=== PATIENT | female | born 1995 | race Caucasian/White ===

== ENCOUNTER 2016-06-11 15:44 | Inpatient (IN) | payer OTHER ==
[~2016-06-11] VITALS: Ht 157.5 cm; Wt 51.2 kg
[2016-06-11] MEDS ORDERED: ONDANSETRON INJ 2 MG/ML 2 ML VIAL IV STA (16:02)
[2016-06-11] MEDS ORDERED: SODIUM CHLORIDE 0.9% 1000ML 1,000 ML IV STA ×2 (16:02)
[2016-06-11] MEDS ORDERED: PROMETHAZINE HCL INJ 6.25 MG in SODIUM CHLORIDE 0.9% 50ML 50 ML IV STA (16:02)
--- NOTE | 2016-06-11 16:19 | EMERGENCY ROOM VISIT NOTE ---
History Report prepared by Gi: Hazel Esquivel Under the Supervision of: Dr. Shai Potter M.D. First contact with patient: 15:56 Chief Complaint: DIZZY Stated Complaint: DIZZY, WEAK, RAPID HEARTRATE, TROUBLE BREATHING Nursing Triage Summary: Pt presents stating she is taking Amox and Clarithromycin since June 05 for h.pylori. I quit taking the Amox yesterday because I thought that was causing the rapid heart rate. They also gave me Prilosec, but I haven't taken it today. For a couple days my heart has been beating rapidly, I was sob and about 3am I got dizzy." History of Present Illness The patient is a 20 year old female who presents to the Emergency Room with complaints of intermittent dizziness starting about 3-4 days ago. She describes it to be a room-spinning dizziness. She has worsening dizziness with changes in position. The patient was recently diagnosed with H Pylori. She was placed on Amoxicillin, Clarithromycin, and Prilosec on June 05. A few days ago, she started having heart palpitations, shortness of breath, and dizziness. She stopped taking Amoxicillin as recommended by her PCP due to concerns about a medication reaction. She continues to have the dizziness, heart palpitations, and shortness of breath. She also started having chest pain last night. She also reports diffuse abdominal pain. 2 days ago, she had vomiting and diarrhea. She describes the diarrhea to be loose and watery. She had some diarrhea this morning but did not have any vomiting today. She also denies urinary symptoms, or any other complaints. She denies any chance of . Besides the H Pylori diagnosis, the patient does not have any other medical problems. She denies any personal or family history of blood clots. The patient traveled to and from [place] in the past 2 weeks. Source of History: patient Onset: about 3-4 days ago Position: other (global) Quality: other (dizziness) Timing: intermittent Modifying Factors (Worsening): other (changes in position) Associated Symptoms: + SOB, + abdominal pain, + chest pain, + diarrhea, + vomiting, No urinary symptoms Review of Systems See HPI for pertinent positives & negatives. A total of 10 systems reviewed and were otherwise negative. Past Medical & Surgical Medical Problems: (1) Positive H. pylori test Family History Patient reports no known family medical history. Social History Smoking Status: Never Smoker Marital Status: single Occupation Status: [employer] student Current/Historical Medications Scheduled Amoxicillin (Amoxil), 2 CAP PO Q12 Clarithromycin (Clarithromycin), 1 TAB PO Q12 Omeprazole (Omeprazole), 1 TAB PO DAILY Allergies Coded Allergies: No Known Allergies (Unverified , 06/11/16) Physical Exam Vital Signs Date Time Temp Pulse Resp B/P Pulse Ox O2 Delivery O2 Flow Rate FiO2 06/11/16 20:17 94 16 128/71 100 Room Air 06/11/16 19:31 104 16 117/75 99 Room Air 06/11/16 18:50 99 18 117/75 100 Room Air 06/11/16 18:05 91 16 128/71 100 Room Air 06/11/16 17:43 101 06/11/16 17:43 98 18 130/70 98 Room Air 06/11/16 17:03 84 121/67 100 Room Air 95 136/78 88 129/70 06/11/16 15:50 36.5 87 18 152/83 100 Room Air Physical Exam GENERAL: Patient is in no acute distress. HEENT: No acute trauma, normocephalic atraumatic, mucous membranes moist, no nasal congestion, no scleral icterus. NECK: No stridor, no adenopathy, no meningismus, trachea is midline. LUNGS: Clear to auscultation bilaterally, no wheeze, no rhonchi, breath sounds equal. HEART: 2/6 systolic murmur with a mild tachycardia and a regular rhythm. ABDOMEN: Soft, nontender, bowel sounds positive, no hernias, no peritonitis. EXTREMITIES: No cyanosis or edema, full range of motion of all the joints without pain or difficulty, no signs for acute trauma. NEUROLOGIC: Oriented x 3, no acute motor or sensory deficits, no focal weakness. No cerebellar deficits. No pronator drift. SKIN: No rash, no jaundice, no diaphoresis. Medical Decision & Procedures ER Provider Diagnostic Interpretation: Ortho vital signs are negative. X ray results and stated below per my interpretation and radiologist interpretation. CT results and stated below per my review and radiologist interpretation: SINGLE VIEW CHEST CLINICAL HISTORY: Weakness. Change in mental status. FINDINGS: An AP, portable, upright chest radiograph is obtained. No prior studies are available for comparison at the time of dictation. The examination is degraded by portable technique and patient rotation. The cardiomediastinal silhouette is unremarkable. The lungs and pleural spaces are clear. No pneumothorax is seen. The bony thorax is grossly intact. IMPRESSION: No active disease in the chest. Electronically signed by: Shai Dsouza M.D. 06/11/2016 4:45 PM Dictated Date/Time: 06/11/2016 4:45 PM CHEST CTA for PULMONARY ARTERIES CT DOSE: 193.36 mGy.cm HISTORY: Weakness. Change in mental status. TECHNIQUE: Multiaxial CT images of the chest were performed following the intravenous administration of contrast to evaluate the pulmonary arteries. Maximal intensity projection images were also obtained. COMPARISON STUDY: None. FINDINGS: There is a normal caliber thoracic aorta with no evidence for dissection. There is no evidence for pulmonary embolus. No pleural effusions. No pneumothorax. The liver and spleen are unremarkable. No mediastinal or hilar lymphadenopathy. The central airways are patent. The lungs are clear. Small amount of residual thymic tissue. IMPRESSION: No evidence for pulmonary embolus. Electronically signed by: Amado Elizondo M.D. 06/11/2016 5:49 PM Dictated Date/Time: 06/11/2016 5:42 PM Laboratory Results 06/11/16 16:15 Red Blood Count 4.28, Mean Corpuscular Volume 82.9, Mean Corpuscular Hemoglobin 28.5, Mean Corpuscular Hemoglobin Concent 34.4, Mean Platelet Volume 10.1, Neutrophils (%) (Auto) 77.5, Lymphocytes (%) (Auto) 14.3, Monocytes (%) (Auto) 7.8, Eosinophils (%) (Auto) 0.2, Basophils (%) (Auto) 0.1, Neutrophils # (Auto) 6.64, Lymphocytes # (Auto) 1.23, Monocytes # (Auto) 0.67, Eosinophils # (Auto) 0.02, Basophils # (Auto) 0.01 06/11/16 16:15 Test 06/11/16 16:15 06/11/16 16:22 06/11/16 17:55 06/11/16 19:55 White Blood Count 8.58 K/uL (4.8-10.8) Red Blood Count 4.28 M/uL (4.2-5.4) Hemoglobin 12.2 g/dL (12.0-16.0) Hematocrit 35.5 % (37-47) Mean Corpuscular Volume 82.9 fL (80-100) Mean Corpuscular Hemoglobin 28.5 pg (25-34) Mean Corpuscular Hemoglobin Concent 34.4 g/dl (32-36) Platelet Count 292 K/uL (130-400) Mean Platelet Volume 10.1 fL (7.4-10.4) Neutrophils (%) (Auto) 77.5 % Lymphocytes (%) (Auto) 14.3 % Monocytes (%) (Auto) 7.8 % Eosinophils (%) (Auto) 0.2 % Basophils (%) (Auto) 0.1 % Neutrophils # (Auto) 6.64 K/uL (1.4-6.5) Lymphocytes # (Auto) 1.23 K/uL (1.2-3.4) Monocytes # (Auto) 0.67 K/uL (0.11-0.59) Eosinophils # (Auto) 0.02 K/uL (0-0.5) Basophils # (Auto) 0.01 K/uL (0-0.2) RDW Standard Deviation 42.3 fL (36.4-46.3) RDW Coefficient of Variation 13.8 % (11.5-14.5) Immature Granulocyte % (Auto) 0.1 % Immature Granulocyte # (Auto) 0.01 K/uL (0.00-0.02) Anion Gap 9.0 mmol/L (3-11) Est Creatinine Clear Calc Drug Dose 86.2 ml/min Estimated GFR () 120.3 Estimated GFR (Non- 103.8 BUN/Creatinine Ratio 13.1 (10-20) Calcium Level 8.7 mg/dl (8.5-10.1) Magnesium Level 1.8 mg/dl (1.8-2.4) Total Bilirubin 0.2 mg/dl (0.2-1) Aspartate Amino Transf (AST/SGOT) 10 U/L (15-37) Alanine Aminotransferase (ALT/SGPT) 13 U/L (12-78) Alkaline Phosphatase 63 U/L (45-117) Total Protein 7.6 gm/dl (6.4-8.2) Albumin 3.5 gm/dl (3.4-5.0) Globulin 4.1 gm/dl (2.5-4.0) Albumin/Globulin Ratio 0.9 (0.9-2) Thyroid Stimulating Hormone (TSH) 1.750 uIu/ml (0.300-4.500) Human Chorionic Gonadotropin, Qual NEG (NEG) Bedside D-Dimer > 450 ng/mlFEU (0-450) Urine Color YELLOW Urine Appearance CLEAR (CLEAR) Urine pH 5.5 (4.5-7.5) Urine Specific Carlton > 1.045 (1.000-1.030) Urine Protein NEG (NEG) Urine Glucose (UA) NEG (NEG) Urine Ketones 1+ (NEG) Urine Occult Blood TRACE (NEG) Urine Nitrite NEG (NEG) Urine Bilirubin NEG (NEG) Urine Urobilinogen NEG (NEG) Urine Leukocyte Esterase NEG (NEG) Urine WBC (Auto) 1-5 /hpf (0-5) Urine RBC (Auto) 0-4 /hpf (0-4) Urine Hyaline Casts (Auto) 1-5 /lpf (0-5) Urine Epithelial Cells (Auto) >30 /lpf (0-5) Urine Bacteria (Auto) NEG (NEG) Creatine Kinase MB Ratio (0-3.0) Laboratory results reviewed by me. Medications Administered Medications (Trade) Dose Ordered Sig/Keiko Route Start Time Stop Time Status Last Admin Dose Admin Sodium Chloride 1,000 ml @ 999 mls/hr Q1H1M STAT IV 06/11/16 16:02 06/11/16 17:02 DC 06/11/16 16:57 999 MLS/HR Sodium Chloride 1,000 ml @ 200 mls/hr Q5H STAT IV 06/11/16 16:02 06/11/16 21:01 06/11/16 17:49 200 MLS/HR Promethazine HCl/ Sodium Chloride (Phenergan Inj/ Nss 50ml) 50.25 ml @ 204 mls/hr NOW STAT IV 06/11/16 16:02 06/11/16 16:16 DC 06/11/16 16:59 204 MLS/HR Ondansetron HCl (Zofran Inj) 4 mg NOW STAT IV 06/11/16 16:02 06/11/16 16:05 DC 06/11/16 16:59 4 MG Potassium Chloride (Kcl 10 Meq / Wtr) 10 meq NOW STAT IV 06/11/16 17:01 06/11/16 17:02 DC 06/11/16 17:49 10 MEQ Potassium Chloride (Klor-Con M10) 20 meq NOW STAT PO 06/11/16 18:12 06/11/16 18:13 DC 06/11/16 18:49 20 MEQ ECG Indication: other (dizziness) Rate (beats per minute): 86 Rhythm: normal sinus Findings: T-wave inversion (Anterior), no ectopy ED Course 1556: The patient was evaluated in room B04B. A complete history and physical exam was performed. 1602: Zofran Inj 4 mg IV, Promethazine HCl 6.25 mg/Sodium Chloride 50.25 ml @ 204 mls/hr IV, Sodium Chloride 1000 ml @ 200 mls/hr IV, Sodium Chloride 1000 ml @ 999 mls/hr IV 1701: Potassium Chloride 10 meq UV 1812: Potassium Chloride 20 meq PO 1836: Upon reexamination the patient continues to be symptomatic. I discussed results and treatment plan with the patient. She verbalizes agreement and understanding. The patient will be evaluated for further management. 1847: I discussed the patient's case [facility] Medical Decision Differential diagnosis includes but is not limited to dehydration, viral illness , electrolyte imbalance, anemia, UTI, medication reaction. There is no leukocytosis or concerning anemia. Potassium is low at 2.9. No kidney failure. Magnesium is normal. There is no hepatitis. The patient appears to be in a euthyroid state. Orthostatic vital signs were negative. EKG showed a sinus rhythm with inverted T waves in the anterior leads, this finding could be consistent with her low potassium value. Cardiac enzyme testing 1 is not consistent with acute cardiac injury. Chest x-ray does not show pneumonia or CHF, no cardiomegaly. D-dimer testing was positive. Chest CT shows no PE, no evidence for pneumonia. testing was negative. The patient received IV saline, IV Phenergan and IV Zofran. She received oral and IV potassium. The patient is still dizzy although feeling somewhat better. I suspect she feels poorly because of the medications she just started for her H. pylori. These medications are causing some issues and in addition, she has become dehydrated from her vomiting and diarrhea. Her potassium has decreased to the point were it has caused some potential changes on her EKG. Given the circumstances, given her history and findings, admission/observation was felt warranted. She requires IV hydration, further potassium replacement. I spoke with her and to case management. The on-call hospitalist was consulted. Consults Time Called: 1841 Consulting Physician: [facility] Returned Call: [phone] I discussed the patient's case with Dr. Ascencio, from [facility]. Impression Primary Impression: Dehydration Additional Impressions: Hypokalemia Abnormal EKG Vomiting and diarrhea Scribe Attestation The scribe's documentation has been prepared under my direction and personally reviewed by me in its entirety. I confirm that the note above accurately reflects all work, treatment, procedures, and medical decision making performed by me. Departure Information Dispostion Being Evaluated By Hospitalist Referrals No Doctor, Assigned (PCP) Patient Instructions [facility] Problem Qualifiers
[2016-06-11 16:40] LABS: BASO % 0.1 %; BASO ABS # 0.01 K/uL (0-0.2); COMPLETE YES; EOS % 0.2 %; HEMATOCRIT 35.5 % (37-47); IG% 0.1 %; LYMPH % 14.3 %; LYMPH ABS # 1.23 K/uL (1.2-3.4); MEAN CELL VOLUME 82.9 fL (80-100); MEAN CORPUSCULAR HEMOGLOBIN 28.5 pg (25-34); MEAN CORPUSCULAR HGB CONC 34.4 g/dl (32-36); MEAN PLATELET VOLUME 10.1 fL (7.4-10.4); MONO % 7.8 %; NEUT % 77.5 %; PLATELET COUNT 292 K/uL (130-400); RED BLOOD COUNT 4.28 M/uL (4.2-5.4); WHITE BLOOD COUNT 8.58 K/uL (4.8-10.8)
--- NOTE | 2016-06-11 16:47 | DIAGNOSTIC IMAGING REPORT ---
SINGLE VIEW CHEST CLINICAL HISTORY: Weakness. Change in mental status. FINDINGS: An AP, portable, upright chest radiograph is obtained. No prior studies are available for comparison at the time of dictation. The examination is degraded by portable technique and patient rotation. The cardiomediastinal silhouette is unremarkable. The lungs and pleural spaces are clear. No pneumothorax is seen. The bony thorax is grossly intact. IMPRESSION: No active disease in the chest. Electronically signed by: Shai Dsouza M.D. 06/11/2016 4:45 PM Dictated Date/Time: 06/11/2016 4:45 PM
[2016-06-11 16:52] LABS: PREG INTERNAL NEGATIVE QC NEG CLEAR BACKGROUND; PREG INTERNAL POSITIVE QC POS CONTROL LINE
[2016-06-11 16:53] LABS: ALT/SGPT 13 U/L (12-78); AST/SGOT 10 U/L (15-37); BLOOD UREA NITROGEN 11 mg/dl (7-18); BUN/CREATININE RATIO 13.1 (10-20); CALCIUM 8.7 mg/dl (8.5-10.1); CARBON DIOXIDE 22 mmol/L (21-32); CHLORIDE 105 mmol/L (98-107); CREATININE 0.81 mg/dl (0.60-1.20); GLUCOSE 101 mg/dl (70-99); MAGNESIUM 1.8 mg/dl (1.8-2.4); POTASSIUM 2.9 mmol/L (3.5-5.1); SODIUM 136 mmol/L (136-145)
[2016-06-11] MEDS ORDERED: POTASSIUM CHLORIDE 10 MEQ / 100ML WTR IV STA (17:01)
[2016-06-11 17:03] LABS: ALB/GLOB RATIO 0.9 (0.9-2); ALKALINE PHOSPHATASE 63 U/L (45-117)
[2016-06-11] MEDS ORDERED: BXN500 PO (17:17)
[2016-06-11] MEDS ORDERED: OMEP20TA PO (17:17)
[2016-06-11] MEDS ORDERED: AMOX500C3 PO (17:17)
[2016-06-11] MEDS ORDERED: OPTIRAY 320 IV PRN (17:30)
--- NOTE | 2016-06-11 17:51 | DIAGNOSTIC IMAGING REPORT ---
CHEST CTA for PULMONARY ARTERIES CT DOSE: 193.36 mGy.cm HISTORY: Weakness. Change in mental status. TECHNIQUE: Multiaxial CT images of the chest were performed following the intravenous administration of contrast to evaluate the pulmonary arteries. Maximal intensity projection images were also obtained. COMPARISON STUDY: None. FINDINGS: There is a normal caliber thoracic aorta with no evidence for dissection. There is no evidence for pulmonary embolus. No pleural effusions. No pneumothorax. The liver and spleen are unremarkable. No mediastinal or hilar lymphadenopathy. The central airways are patent. The lungs are clear. Small amount of residual thymic tissue. IMPRESSION: No evidence for pulmonary embolus. Electronically signed by: Amado Elizondo M.D. 06/11/2016 5:49 PM Dictated Date/Time: 06/11/2016 5:42 PM
[2016-06-11 18:11] LABS: URINE APPEARANCE CLEAR (CLEAR); URINE BILIRUBIN NEG (NEG); URINE COLOR YELLOW; URINE EPITHELIAL CELL AUTO >30 /lpf (0-5); URINE NITRITE NEG (NEG); URINE PH 5.5 (4.5-7.5); URINE SPECIFIC GRAVITY > 1.045 (1.000-1.030); UROBILINOGEN NEG (NEG); ZZUR CULT IF INDIC CLEAN CATCH NO
[2016-06-11 18:12] LABS: MANUAL MICROSCOPIC REQUIRED? NO; REVIEW REQ? NO
[2016-06-11] MEDS ORDERED: POTASSIUM CHLORIDE 10 MEQ TABCR PO STA (18:12)
[2016-06-11] MEDS ORDERED: ACETAMINOPHEN 325 MG TAB PO PRN (20:00)
[2016-06-11] MEDS ORDERED: ONDANSETRON INJ 2 MG/ML 2 ML VIAL IV PRN (20:00)
[2016-06-11] MEDS ORDERED: ZOLPIDEM TARTRATE 5 MG TAB PO PRN (20:00)
[2016-06-11 20:50] VITALS: BP 156/88; TEMP 37.3; Ht 157.5 cm; Wt 51.2 kg
[2016-06-11 20:54] VITALS: BP 156/88; PULSE 91; TEMP 37.3; O2SAT 98
--- NOTE | 2016-06-11 21:26 | History and Physical ---
History & Physical Date & Time of Service: Jun 11, 2016 at 21:15 Chief Complaint: Abnormal Ekg, Hypokalemia Primary Care Physician: No Doctor, Assigned History of Present Illness Source: patient The patient is a 20-year-old female who presents emergency department with complaint of a room spinning type of dizziness that began about 4 days prior to arrival. She reports that she's had abdominal pain for the past 3 years, and was recently diagnosed by her physicians in [place] where she lives, with Helicobacter pylori. She was started on Prilosec, amoxicillin, and Biaxin per protocol about one week ago, and developed a few days later the symptoms of dizziness along with heart palpitations, shortness of breath, diarrhea and vomiting. When she contacted her PCP in [place] 2 days ago, she was told to stop the amoxicillin. With persistent symptoms she was advised to come to emergency department for assessment. Past Medical/Surgical History Medical Problems: (1) Positive H. pylori test Status: Resolved Family History Patient reports no known family medical history. Social History Smoking Status: Never Smoker Smokeless Tobacco Use: No Alcohol Use: none Marital Status: single Occupational Status: [employer] student Multi-Drug Resistant Organisms History of MDRO: No Allergies Coded Allergies: No Known Allergies (Unverified , 06/11/16) Home Medications Scheduled Amoxicillin (Amoxil), 2 CAP PO Q12 Clarithromycin (Clarithromycin), 1 TAB PO Q12 Omeprazole (Omeprazole), 1 TAB PO DAILY Review of Systems The patient denies chest pain, cough, lower extremity swelling, vision change, hearing change, sore throat, fevers, chills, sweats, blood in urine or stool, dysuria, urinary frequency or urgency, headache, memory loss, rash, abnormal bruising or bleeding, focal weakness, numbness or tingling in arms or legs, arthralgias or myalgias, back or neck pain, night sweats. The review of systems is otherwise negative other than for that already noted above, and at least 10 systems have been reviewed. Physical Exam Vital Signs Date Time Temp Pulse Resp B/P Pulse Ox O2 Delivery O2 Flow Rate FiO2 06/11/16 20:54 37.3 91 16 156/88 98 Room Air 06/11/16 20:17 94 16 128/71 100 Room Air 06/11/16 19:31 104 16 117/75 99 Room Air 06/11/16 18:50 99 18 117/75 100 Room Air 06/11/16 18:05 91 16 128/71 100 Room Air 06/11/16 17:43 101 06/11/16 17:43 98 18 130/70 98 Room Air 06/11/16 17:03 84 121/67 100 Room Air 95 136/78 88 129/70 06/11/16 15:50 36.5 87 18 152/83 100 Room Air The patient is awake, well-developed and adequately nourished, alert and oriented 3, normocephalic and atraumatic, lying in bed and in no acute distress. HEENT--PERRL, EOMI, mucous membranes and oropharynx dry. Neck--supple, no JVD or bruits, thyroid normal, trachea midline, no adenopathy. Heart--normal S1 and S2, frequent PACs, no murmurs, rubs or gallops. Lungs--clear bilaterally with good air movement, no respiratory distress, no accessory muscle use. Abdomen--normal bowel sounds and soft, nontender and nondistended, no hernias or masses, no organomegaly. Extremities--no cyanosis, clubbing or edema. There are good distal pulses b/l. Dermatologic--normal skin turgor, normal color, warm and dry, no abnormal lymph nodes, no rash. Neurologic--cranial nerves II through XII grossly intact, motor and sensory examination normal. Rheumatologic--normal range of motion, nontender, muscles and joints. Psychiatric--normal affect. Diagnostics Laboratory Results Results Past 24 Hours Test 06/11/16 16:15 06/11/16 16:22 06/11/16 17:55 06/11/16 19:55 Range/Units White Blood Count 8.58 4.8-10.8 K/uL Red Blood Count 4.28 4.2-5.4 M/uL Hemoglobin 12.2 12.0-16.0 g/dL Hematocrit 35.5 37-47 % Mean Corpuscular Volume 82.9 80-100 fL Mean Corpuscular Hemoglobin 28.5 25-34 pg Mean Corpuscular Hemoglobin Concent 34.4 32-36 g/dl Platelet Count 292 130-400 K/uL Mean Platelet Volume 10.1 7.4-10.4 fL Neutrophils (%) (Auto) 77.5 % Lymphocytes (%) (Auto) 14.3 % Monocytes (%) (Auto) 7.8 % Eosinophils (%) (Auto) 0.2 % Basophils (%) (Auto) 0.1 % Neutrophils # (Auto) 6.64 1.4-6.5 K/uL Lymphocytes # (Auto) 1.23 1.2-3.4 K/uL Monocytes # (Auto) 0.67 0.11-0.59 K/uL Eosinophils # (Auto) 0.02 0-0.5 K/uL Basophils # (Auto) 0.01 0-0.2 K/uL RDW Standard Deviation 42.3 36.4-46.3 fL RDW Coefficient of Variation 13.8 11.5-14.5 % Immature Granulocyte % (Auto) 0.1 % Immature Granulocyte # (Auto) 0.01 0.00-0.02 K/uL Sodium Level 136 136-145 mmol/L Potassium Level 2.9 3.5-5.1 mmol/L Chloride Level 105 98-107 mmol/L Carbon Dioxide Level 22 21-32 mmol/L Anion Gap 9.0 3-11 mmol/L Blood Urea Nitrogen 11 7-18 mg/dl Creatinine 0.81 0.60-1.20 mg/dl Est Creatinine Clear Calc Drug Dose 86.2 ml/min Estimated GFR () 120.3 Estimated GFR (Non- 103.8 BUN/Creatinine Ratio 13.1 10-20 Random Glucose 101 70-99 mg/dl Calcium Level 8.7 8.5-10.1 mg/dl Magnesium Level 1.8 1.8-2.4 mg/dl Total Bilirubin 0.2 0.2-1 mg/dl Aspartate Amino Transf (AST/SGOT) 10 15-37 U/L Alanine Aminotransferase (ALT/SGPT) 13 12-78 U/L Alkaline Phosphatase 63 45-117 U/L Troponin I < 0.015 0-0.045 ng/ml Total Protein 7.6 6.4-8.2 gm/dl Albumin 3.5 3.4-5.0 gm/dl Globulin 4.1 2.5-4.0 gm/dl Albumin/Globulin Ratio 0.9 0.9-2 Thyroid Stimulating Hormone (TSH) 1.750 0.300-4.500 uIu/ml Human Chorionic Gonadotropin, Qual NEG NEG Bedside D-Dimer > 450 0-450 ng/mlFEU Urine Color YELLOW Urine Appearance CLEAR CLEAR Urine pH 5.5 4.5-7.5 Urine Specific [place] > 1.045 1.000-1.030 Urine Protein NEG NEG Urine Glucose (UA) NEG NEG Urine Ketones 1+ NEG Urine Occult Blood TRACE NEG Urine Nitrite NEG NEG Urine Bilirubin NEG NEG Urine Urobilinogen NEG NEG Urine Leukocyte Esterase NEG NEG Urine WBC (Auto) 1-5 0-5 /hpf Urine RBC (Auto) 0-4 0-4 /hpf Urine Hyaline Casts (Auto) 1-5 0-5 /lpf Urine Epithelial Cells (Auto) >30 0-5 /lpf Urine Bacteria (Auto) NEG NEG Creatine Kinase MB Ratio 0-3.0 Test 06/11/16 20:35 Range/Units Diagnostic Radiology Patient Name: CORAL LOWRY Unit Number: [id number] Dictated: 06/11/161644 Transcribed: 06/11/161644 EV Printed Date/Time: [~ rep prt dt]/[~ rep prt tm] [~ rep ct labl] - [~ rep ct ivnm] [facility] [place] [address] Dictated: 06/11/161644 Transcribed: 06/11/161644 EV Printed Date/Time: [~ rep prt dt]/[~ rep prt tm] [~ rep ct labl] - [~ rep ct ivnm] SINGLE VIEW CHEST CLINICAL HISTORY: Weakness. Change in mental status. FINDINGS: An AP, portable, upright chest radiograph is obtained. No prior studies are available for comparison at the time of dictation. The examination is degraded by portable technique and patient rotation. The cardiomediastinal silhouette is unremarkable. The lungs and pleural spaces are clear. No pneumothorax is seen. The bony thorax is grossly intact. IMPRESSION: No active disease in the chest. Electronically signed by: Shai Dsouza M.D. 06/11/2016 4:45 PM Dictated Date/Time: 06/11/2016 4:45 PM The status of this report is Signed. Draft = Not yet reviewed or approved by Radiologist. Signed = Reviewed and approved by Radiologist. <AttendingPhy></AttendingPhy> <FamilyPhy>No Doctor, Assigned</FamilyPhy> < PrimaryPhy>No Doctor, Assigned</PrimaryPhy> <UnitNumber>[id number]</UnitNumber> <VisitNumber>[id number]</VisitNumber> <PatientName>CORAL LOWRY</ PatientName> <DateOfBirth>1995</DateOfBirth> <Location>C.EDB</Location> < ServiceDate>06/11/16</ServiceDate> <MNE>ESINDI</MNE> <OrderingPhy>Shai Potter M.D.</OrderingPhy> <OrderingPhyMNE>f rep ord dr chi</OrderingPhyMNE> < DictatingPhyMNE>f rep dict dr chi</DictatingPhyMNE> <CCListMNE>f rep ct mne</ CCListMNE> <AdmittingPhyMNE>f pt admit dr chi</AdmittingPhyMNE> <AttendingPhyMNE >f pt attend dr chi</AttendingPhyMNE> <ConsultingPhyMNE>f pt consult dr chi</ConsultingPhyMNE> <FamilyPhyMNE>f pt fam dr chi</FamilyPhyMNE> <OtherPhyMNE>f pt other dr chi</OtherPhyMNE> < PrimaryPhyMNE>f pt prim care dr chi</PrimaryPhyMNE> <ReferringPhyMNE>f pt referring dr chi</ReferringPhyMNE> Patient Name: CORAL LOWRY Unit Number: [id number] Dictated: 06/11/161741 Transcribed: 06/11/161741 [facility] Printed Date/Time: [~ rep prt dt]/[~ rep prt tm] [~ rep ct labl] - [~ rep ct ivnm] [facility] [place] [address] Dictated: 06/11/161741 Transcribed: 06/11/161741 [facility] Printed Date/Time: [~ rep prt dt]/[~ rep prt tm] [~ rep ct labl] - [~ rep ct ivnm] CT DOSE: 193.36 mGy.cm HISTORY: Weakness. Change in mental status. TECHNIQUE: Multiaxial CT images of the chest were performed following the intravenous administration of contrast to evaluate the pulmonary arteries. Maximal intensity projection images were also obtained. COMPARISON STUDY: None. FINDINGS: There is a normal caliber thoracic aorta with no evidence for dissection. There is no evidence for pulmonary embolus. No pleural effusions. No pneumothorax. The liver and spleen are unremarkable. No mediastinal or hilar lymphadenopathy. The central airways are patent. The lungs are clear. Small amount of residual thymic tissue. IMPRESSION: No evidence for pulmonary embolus. Electronically signed by: Amado Elizondo M.D. 06/11/2016 5:49 PM Dictated Date/Time: 06/11/2016 5:42 PM The status of this report is Signed. Draft = Not yet reviewed or approved by Radiologist. Signed = Reviewed and approved by Radiologist. <AttendingPhy></AttendingPhy> <FamilyPhy>No Doctor, Assigned</FamilyPhy> < PrimaryPhy>No Doctor, Assigned</PrimaryPhy> <UnitNumber>[id number]</UnitNumber> <VisitNumber>[id number]</VisitNumber> <PatientName>CORAL LOWRY</ PatientName> <DateOfBirth>1995</DateOfBirth> <Location>C.EDB</Location> < ServiceDate>06/11/16</ServiceDate> <MNE>ESINDI</MNE> <OrderingPhy>Shai Potter M.D.</OrderingPhy> <OrderingPhyMNE>f rep ord dr chi</OrderingPhyMNE> < DictatingPhyMNE>f rep dict dr chi</DictatingPhyMNE> <CCListMNE>f rep ct alon</ CCListMNE> <AdmittingPhyMNE>f pt admit dr chi</AdmittingPhyMNE> <AttendingPhyMNE >f pt attend dr chi</AttendingPhyMNE> <ConsultingPhyMNE>f pt consult dr chi</ConsultingPhyMNE> <FamilyPhyMNE>f pt fam dr chi</FamilyPhyMNE> <OtherPhyMNE>f pt other dr chi</OtherPhyMNE> < PrimaryPhyMNE>f pt prim care dr chi</PrimaryPhyMNE> <ReferringPhyMNE>f pt referring dr chi</ReferringPhyMNE> EKG EKG shows normal sinus rhythm with sinus arrhythmia at 86 bpm. There are T- wave inversions across the precordial chest leads suggesting the possibility of anterior ischemia. Impression Assessment and Plan Palpitations/shortness of breath/dizziness/chest pain--the patient does have an abnormal EKG, which may be secondary to hypokalemia, but needs a full cardiac workup. She'll be admitted to the telemetry unit, for serial cardiac enzymes, cardiac rhythm monitoring a 2-D echocardiogram with Dopplers, and a cardiology consult. Her potassium is being replaced both orally and IV. Magnesium is borderline at 1.8, and will be optimized with 1 g of magnesium sulfate IV. GI symptoms/nausea/vomiting/diarrhea--I likely secondary to her H. pylori treatment which will be discontinued. I would not place her on any additional H. pylori treatment at this time, and she would prefer not to as well. For now , place her on famotidine 20 mg IV every 12 hours. She does feel hungry, and she'll be allowed to have a regular diet. Hypokalemia/borderline magnesium--likely secondary to diarrhea and vomiting. As noted above, they will replaced both by IV and oral supplement, it should not be a further issue once above treatment has been discontinued. Level of Care Telemetry Advanced Directives Existing Advance Directive: No Existing Living Will: No Existing Power of Order [place]: No VTE Prophylaxis VTE Risk Assessment Done? Y/N: Yes Risk Level: Low Given or contraindicated: SCD's
[2016-06-11 21:30] LABS: CKMB/CK RATIO 1.3 (0-3.0)
[2016-06-11] MEDS ORDERED: MAGNESIUM SULFATE 1GM / D5W 1 GM in PREMIXED IN D5W 100 ML IV ONE (21:30)
[2016-06-11] MEDS: NSS + 20MEQ KCL 1000ML 1,000 ML IV SCH (21:44)
[2016-06-11] MEDS ORDERED: POTASSIUM CHLORIDE 10 MEQ TABCR PO SCH (22:00)
[2016-06-11] MEDS: FAMOTIDINE IV INJ 20 MG in DEXTROSE 5% 100ML 100 ML IV SCH (22:47)
[2016-06-11 23:44] VITALS: BP 130/82; PULSE 87; TEMP 36.8; O2SAT 97
[2016-06-12 00:01] VITALS: O2SAT 97
[2016-06-12] MEDS ORDERED: INFLUENZA VIRUS QUAD VACCINE 0.5 ML SYR IM. ONE (00:15)
[2016-06-12] MEDS ORDERED: INFLUENZA ADMINISTRATION CHARGE ONE (00:15)
[2016-06-12] MEDS: NSS + 20MEQ KCL 1000ML 1,000 ML IV SCH ×2 (03:27→09:26)
[2016-06-12 03:52] VITALS: BP 110/68; PULSE 80; TEMP 37; O2SAT 98
[2016-06-12 04:00] VITALS: O2SAT 98
[2016-06-12 04:33] LABS: BASO % 0.3 %; BASO ABS # 0.02 K/uL (0-0.2); COMPLETE YES; EOS % 1.3 %; HEMATOCRIT 33.2 % (37-47); IG% 0.3 %; LYMPH % 27.7 %; LYMPH ABS # 1.97 K/uL (1.2-3.4); MEAN CELL VOLUME 84.3 fL (80-100); MEAN CORPUSCULAR HEMOGLOBIN 27.7 pg (25-34); MEAN CORPUSCULAR HGB CONC 32.8 g/dl (32-36); MEAN PLATELET VOLUME 10.1 fL (7.4-10.4); MONO % 10.1 %; NEUT % 60.3 %; PLATELET COUNT 277 K/uL (130-400); RED BLOOD COUNT 3.94 M/uL (4.2-5.4); WHITE BLOOD COUNT 7.11 K/uL (4.8-10.8)
[2016-06-12 04:53] LABS: BUN/CREATININE RATIO 8.9 (10-20); CARBON DIOXIDE 24 mmol/L (21-32); CHLORIDE 114 mmol/L (98-107); CREATININE 0.73 mg/dl (0.60-1.20); GLUCOSE 104 mg/dl (70-99); MAGNESIUM 2.3 mg/dl (1.8-2.4); SODIUM 144 mmol/L (136-145)
[2016-06-12 05:04] LABS: CKMB/CK RATIO 1.2 (0-3.0)
[2016-06-12 07:00] LABS: BLOOD UREA NITROGEN 6 mg/dl (7-18)
[2016-06-12 07:46] VITALS: BP 120/76; PULSE 75; TEMP 36.8; O2SAT 99
[2016-06-12] MEDS: FAMOTIDINE IV INJ 20 MG in DEXTROSE 5% 100ML 100 ML IV SCH (09:27)
[2016-06-12 11:36] VITALS: BP 129/78; PULSE 66; TEMP 36.8; O2SAT 99
[2016-06-12 12:41] LABS: CKMB/CK RATIO 1.1 (0-3.0)
--- NOTE | 2016-06-12 13:58 | Progress Note ---
Subjective Date of Service: Jun 12, 2016. Subjective Pt evaluation today including: conversation w/ patient, physical exam, lab review, review of studies, conversation w/ performance test consultant, review of inpatient medication list She reports she has been receiving treatment with Amoxicillin and Prilosec for her H. pylori. SHe was told to stop amoxicillin 2 days ago and was started on Clarithromycin which she started yesterday. After he second dose, she started feeling dizzy (vertigo-like) and palpitations. She reports she sometimes gets palpitations and checks her heart rates and usually in the 90s to low 100s and goes back down after a few minutes. She has not had any of the symptoms today. No chest pain, no sob. Her diarrhea has improved. No n/v and no dizziness. Problem List Medical Problems: (1) Abnormal EKG Status: Acute (2) Dehydration Status: Acute (3) Hypokalemia Status: Acute (4) Vomiting and diarrhea Status: Acute Review of Systems All Other Systems: Reviewed and Negative Medications Acetaminophen (Tylenol Tab) 650 mg Q4H PRN PO; Start 06/11/16 at 20:00; Stop 07/11/16 at 19:59 Famotidine (Pepcid Tab) 20 mg BID PO; Start 06/12/16 at 21:00; Stop 07/12/16 at 20:59 Ioversol (Optiray 320) 92 ml UD PRN IV; Start 06/11/16 at 17:30; Stop 06/15/16 at 17:29 Ondansetron HCl (Zofran Inj) 4 mg Q6H PRN IV; Start 06/11/16 at 20:00; Stop at 19:59 Zolpidem Tartrate (Ambien Tab) 5 mg HSZ PRN PO; Start 06/11/16 at 20:00; Stop 07/11/16 at 19:59 Objective Vital Signs Date Time Temp Pulse Resp B/P Pulse Ox O2 Delivery O2 Flow Rate FiO2 06/12/16 12:00 Room Air 06/12/16 11:36 36.8 66 18 129/78 99 Room Air 06/12/16 08:00 Room Air 06/12/16 07:46 36.8 75 17 120/76 99 Room Air 06/12/16 04:00 98 Room Air 06/12/16 03:52 37.0 80 15 110/68 98 Room Air 06/12/16 00:01 97 Room Air 06/11/16 23:44 36.8 87 17 130/82 97 Room Air 06/11/16 20:54 37.3 91 16 156/88 98 Room Air 06/11/16 20:50 37.3 16 156/88 Room Air 06/11/16 20:17 94 16 128/71 100 Room Air 06/11/16 19:31 104 16 117/75 99 Room Air 06/11/16 18:50 99 18 117/75 100 Room Air 06/11/16 18:05 91 16 128/71 100 Room Air 06/11/16 17:43 101 06/11/16 17:43 98 18 130/70 98 Room Air 06/11/16 17:03 84 121/67 100 Room Air 95 136/78 88 129/70 06/11/16 15:50 36.5 87 18 152/83 100 Room Air Physical Exam Comments: nad, aox3 eomi, perrl, anicteric s1 s2 rrr, + systolic murmur 2/6 radiates to axillary area ctab no w/r/r abd soft nt/nd +BS no LE edema cn 2-12 grossly intact without facial drooping Laboratory Results Last 24 Hours Test 06/11/16 16:15 06/11/16 16:22 06/11/16 17:55 06/11/16 20:35 White Blood Count 8.58 K/uL Red Blood Count 4.28 M/uL Hemoglobin 12.2 g/dL Hematocrit 35.5 % Mean Corpuscular Volume 82.9 fL Mean Corpuscular Hemoglobin 28.5 pg Mean Corpuscular Hemoglobin Concent 34.4 g/dl Platelet Count 292 K/uL Mean Platelet Volume 10.1 fL Neutrophils (%) (Auto) 77.5 % Lymphocytes (%) (Auto) 14.3 % Monocytes (%) (Auto) 7.8 % Eosinophils (%) (Auto) 0.2 % Basophils (%) (Auto) 0.1 % Neutrophils # (Auto) 6.64 K/uL Lymphocytes # (Auto) 1.23 K/uL Monocytes # (Auto) 0.67 K/uL Eosinophils # (Auto) 0.02 K/uL Basophils # (Auto) 0.01 K/uL RDW Standard Deviation 42.3 fL RDW Coefficient of Variation 13.8 % Immature Granulocyte % (Auto) 0.1 % Immature Granulocyte # (Auto) 0.01 K/uL Sodium Level 136 mmol/L Potassium Level 2.9 mmol/L Chloride Level 105 mmol/L Carbon Dioxide Level 22 mmol/L Anion Gap 9.0 mmol/L Blood Urea Nitrogen 11 mg/dl Creatinine 0.81 mg/dl Est Creatinine Clear Calc Drug Dose 86.2 ml/min Estimated GFR () 120.3 Estimated GFR (Non- 103.8 BUN/Creatinine Ratio 13.1 Random Glucose 101 mg/dl Calcium Level 8.7 mg/dl Magnesium Level 1.8 mg/dl Total Bilirubin 0.2 mg/dl Aspartate Amino Transf (AST/SGOT) 10 U/L Alanine Aminotransferase (ALT/SGPT) 13 U/L Alkaline Phosphatase 63 U/L Troponin I < 0.015 ng/ml < 0.015 ng/ml Total Protein 7.6 gm/dl Albumin 3.5 gm/dl Globulin 4.1 gm/dl Albumin/Globulin Ratio 0.9 Thyroid Stimulating Hormone (TSH) 1.750 uIu/ml Human Chorionic Gonadotropin, Qual NEG Bedside D-Dimer > 450 ng/mlFEU Urine Color YELLOW Urine Appearance CLEAR Urine pH 5.5 Urine Specific [place] > 1.045 Urine Protein NEG Urine Glucose (UA) NEG Urine Ketones 1+ Urine Occult Blood TRACE Urine Nitrite NEG Urine Bilirubin NEG Urine Urobilinogen NEG Urine Leukocyte Esterase NEG Urine WBC (Auto) 1-5 /hpf Urine RBC (Auto) 0-4 /hpf Urine Hyaline Casts (Auto) 1-5 /lpf Urine Epithelial Cells (Auto) >30 /lpf Urine Bacteria (Auto) NEG Total Creatine Kinase 53 U/L Creatine Kinase MB 0.7 ng/ml Creatine Kinase MB Ratio 1.3 Test 06/12/16 04:05 06/12/16 12:00 White Blood Count 7.11 K/uL Red Blood Count 3.94 M/uL Hemoglobin 10.9 g/dL Hematocrit 33.2 % Mean Corpuscular Volume 84.3 fL Mean Corpuscular Hemoglobin 27.7 pg Mean Corpuscular Hemoglobin Concent 32.8 g/dl Platelet Count 277 K/uL Mean Platelet Volume 10.1 fL Neutrophils (%) (Auto) 60.3 % Lymphocytes (%) (Auto) 27.7 % Monocytes (%) (Auto) 10.1 % Eosinophils (%) (Auto) 1.3 % Basophils (%) (Auto) 0.3 % Neutrophils # (Auto) 4.29 K/uL Lymphocytes # (Auto) 1.97 K/uL Monocytes # (Auto) 0.72 K/uL Eosinophils # (Auto) 0.09 K/uL Basophils # (Auto) 0.02 K/uL RDW Standard Deviation 42.8 fL RDW Coefficient of Variation 13.9 % Immature Granulocyte % (Auto) 0.3 % Immature Granulocyte # (Auto) 0.02 K/uL Sodium Level 144 mmol/L Potassium Level 4.0 mmol/L Chloride Level 114 mmol/L Carbon Dioxide Level 24 mmol/L Anion Gap 6.0 mmol/L Blood Urea Nitrogen 6 mg/dl Creatinine 0.73 mg/dl Est Creatinine Clear Calc Drug Dose 95.6 ml/min Estimated GFR () 136.5 Estimated GFR (Non- 117.7 BUN/Creatinine Ratio 8.9 Random Glucose 104 mg/dl Calcium Level 8.0 mg/dl Magnesium Level 2.3 mg/dl Total Creatine Kinase 50 U/L 54 U/L Creatine Kinase MB 0.6 ng/ml 0.6 ng/ml Creatine Kinase MB Ratio 1.2 1.1 Troponin I < 0.015 ng/ml < 0.015 ng/ml Assessment and Plan 1. Hypokalemia with EKG changes - chemistry as outpatient a few weeks ago with normal K and normal bicarb unlikely aldosterone-mediated phenomenon - resolved with potassium repletion - EKG with anterior ischemic changes - discussed with cardiology: likely juvenile changes 2. EKG changes, palpitations - does have murmur - negative cardiac enzymes - awaiting echo final read, but preliminary findings without any significant mitral abnormalities per cardio - discussed with cardio: likely no further work-up required - follow-up with primary care physician
[2016-06-12 15:48] VITALS: BP 125/77; PULSE 84; TEMP 37; O2SAT 98
--- NOTE | 2016-06-12 15:50 | Cardiology Consultation ---
Cardiology Consultation Date of Consultation: Jun 12, 2016. Requesting Physician: Dr. Lopez Reason for Consultation: Palpitations, abnormal electrocardiogram Pt evaluation today including: conversation w/ patient, physical exam, lab review, review of studies, review of inpatient medication list History of Present Illness This is a very pleasant 20-year-old woman who has a history of a heart murmur of unknown type, this was identified when she was young and she did have an echocardiogram in high school when she played track and was told that the study looked good but I don't know if she had the source of the murmur identified. Other than that she does not have a cardiac history until recently. She carries a recent diagnosis of H pylori for which she was on amoxicillin, clarithromycin and Prilosec. She also had some abdominal discomfort as well as nausea, vomiting and diarrhea. She then noted that she had dizziness and a sensation of a rapid heart rate associated with shortness of breath and a stabbing chest discomfort. She was told to discontinue one of her antibiotics, but the symptoms persisted. She presented to the emergency room on 06/11/2016, she tells me that she continued to have the rapid heart rate after she came to the emergency room however subsequently the symptoms have virtually resolved. The stabbing chest discomfort is associated with the rapid heart rate and sounds as though it is pulsatile in nature, not exertional and quite atypical for cardiac pain. She doesn't recall having these symptoms before. The shortness of breath is also associated with the rapid heart rate and is not exertional. She has noticed no change in her exercise ability recently. I asked her if she had checked her pulse during these symptoms of rapid heart rate and she feels that it was in the 90s, sometimes low 100s, nothing very excessive. Evaluation here includes cardiac enzymes which are negative and electrocardiograms which show fluctuating precordial T-wave inversion. No significant arrhythmias identified on telemetry monitoring. A chest CT scan is negative for pulmonary embolism (her d-dimer was elevated). At the time of my evaluation today she was feeling better, she does not shortness of breath and had very little of her rapid heart rate since arrival in the emergency room and none today. No further chest discomfort. Past Medical/Surgical History (1) Positive H. pylori test Family History Patient reports no known family medical history. Social History Smoking Status: Unknown if Ever Smoked History of Alcohol Use: Yes Review of Systems Constitutional: No fever, No weakness, No weight loss Respiratory: + see HPI, + shortness of breath, No cough, No dyspnea on exertion , No wheezing Cardiac: + chest pain, + palpitations, + see HPI, No PND, No edema, No orthopnea Abdomen: + diarrhea, + nausea, + vomiting, No GI bleeding, No pain Female : No problem reported Neurologic: No balance problems, No numbness/tingling, No paralysis, No weakness Heme: No abnormal bleeding/bruising, No clotting problems Endo: No fatigue Skin: No problem reported All Other Systems: Reviewed and Negative Allergies Coded Allergies: No Known Allergies (Unverified , 06/11/16) Medications Current Inpatient Medications Medications (Trade) Dose Ordered Sig/Keiko Route Start Time Stop Time Status Last Admin Dose Admin Ioversol (Optiray 320) 92 ml UD PRN IV 06/11/16 17:30 06/15/16 17:29 Acetaminophen (Tylenol Tab) 650 mg Q4H PRN PO 06/11/16 20:00 07/11/16 19:59 Zolpidem Tartrate (Ambien Tab) 5 mg HSZ PRN PO 06/11/16 20:00 07/11/16 19:59 Ondansetron HCl 4 mg 4 mg Q6H PRN IV 06/11/16 20:00 07/11/16 19:59 Famotidine/ Dextrose (Pepcid IV Inj/ D5 100ml) 102 ml @ 200 mls/hr Q12H IV 06/11/16 22:00 07/11/16 21:29 06/12/16 09:27 200 MLS/HR Physical Exam Vital Signs Past 12 Hours Date Time Temp Pulse Resp B/P Pulse Ox O2 Delivery O2 Flow Rate FiO2 06/12/16 12:00 Room Air 06/12/16 11:36 36.8 66 18 129/78 99 Room Air 06/12/16 08:00 Room Air 06/12/16 07:46 36.8 75 17 120/76 99 Room Air 06/12/16 04:00 98 Room Air 06/12/16 03:52 37.0 80 15 110/68 98 Room Air Constitutional: General Apperance: heathly-appearing Level of Distress: NAD Psychiatric: Mental Status: active & alert Head: normocephalic Eyes: EOM: EOMI ENMT: normal ENT inspection, hearing grossly normal Neck: supple, no masses Lungs: Respiratory effort: no dyspnea, good air movement Auscultation: breath sounds normal, no wheezing Cardiovascular: Heart Auscultation: RRR, no murmurs, no rubs, no gallops Peripheral Pulses: Bruits: none appreciated Abdomen: Bowel Sounds: normal Inspection & Palpation: soft, no tenderness, guarding & rebound, no masses Musculoskeletal: normal strength (5/5 throughout) Extremities: no edema Neurologic: Cranial Nerves: grossly intact Sensation: grossly intact Data Laboratory Results: Last 24 Hours Test 06/11/16 16:15 06/11/16 16:22 06/11/16 17:55 06/11/16 20:35 White Blood Count 8.58 K/uL Red Blood Count 4.28 M/uL Hemoglobin 12.2 g/dL Hematocrit 35.5 % Mean Corpuscular Volume 82.9 fL Mean Corpuscular Hemoglobin 28.5 pg Mean Corpuscular Hemoglobin Concent 34.4 g/dl Platelet Count 292 K/uL Mean Platelet Volume 10.1 fL Neutrophils (%) (Auto) 77.5 % Lymphocytes (%) (Auto) 14.3 % Monocytes (%) (Auto) 7.8 % Eosinophils (%) (Auto) 0.2 % Basophils (%) (Auto) 0.1 % Neutrophils # (Auto) 6.64 K/uL Lymphocytes # (Auto) 1.23 K/uL Monocytes # (Auto) 0.67 K/uL Eosinophils # (Auto) 0.02 K/uL Basophils # (Auto) 0.01 K/uL RDW Standard Deviation 42.3 fL RDW Coefficient of Variation 13.8 % Immature Granulocyte % (Auto) 0.1 % Immature Granulocyte # (Auto) 0.01 K/uL Sodium Level 136 mmol/L Potassium Level 2.9 mmol/L Chloride Level 105 mmol/L Carbon Dioxide Level 22 mmol/L Anion Gap 9.0 mmol/L Blood Urea Nitrogen 11 mg/dl Creatinine 0.81 mg/dl Est Creatinine Clear Calc Drug Dose 86.2 ml/min Estimated GFR () 120.3 Estimated GFR (Non- 103.8 BUN/Creatinine Ratio 13.1 Random Glucose 101 mg/dl Calcium Level 8.7 mg/dl Magnesium Level 1.8 mg/dl Total Bilirubin 0.2 mg/dl Aspartate Amino Transf (AST/SGOT) 10 U/L Alanine Aminotransferase (ALT/SGPT) 13 U/L Alkaline Phosphatase 63 U/L Troponin I < 0.015 ng/ml < 0.015 ng/ml Total Protein 7.6 gm/dl Albumin 3.5 gm/dl Globulin 4.1 gm/dl Albumin/Globulin Ratio 0.9 Thyroid Stimulating Hormone (TSH) 1.750 uIu/ml Human Chorionic Gonadotropin, Qual NEG Bedside D-Dimer > 450 ng/mlFEU Urine Color YELLOW Urine Appearance CLEAR Urine pH 5.5 Urine Specific [place] > 1.045 Urine Protein NEG Urine Glucose (UA) NEG Urine Ketones 1+ Urine Occult Blood TRACE Urine Nitrite NEG Urine Bilirubin NEG Urine Urobilinogen NEG Urine Leukocyte Esterase NEG Urine WBC (Auto) 1-5 /hpf Urine RBC (Auto) 0-4 /hpf Urine Hyaline Casts (Auto) 1-5 /lpf Urine Epithelial Cells (Auto) >30 /lpf Urine Bacteria (Auto) NEG Total Creatine Kinase 53 U/L Creatine Kinase MB 0.7 ng/ml Creatine Kinase MB Ratio 1.3 Test 06/12/16 04:05 06/12/16 12:00 White Blood Count 7.11 K/uL Red Blood Count 3.94 M/uL Hemoglobin 10.9 g/dL Hematocrit 33.2 % Mean Corpuscular Volume 84.3 fL Mean Corpuscular Hemoglobin 27.7 pg Mean Corpuscular Hemoglobin Concent 32.8 g/dl Platelet Count 277 K/uL Mean Platelet Volume 10.1 fL Neutrophils (%) (Auto) 60.3 % Lymphocytes (%) (Auto) 27.7 % Monocytes (%) (Auto) 10.1 % Eosinophils (%) (Auto) 1.3 % Basophils (%) (Auto) 0.3 % Neutrophils # (Auto) 4.29 K/uL Lymphocytes # (Auto) 1.97 K/uL Monocytes # (Auto) 0.72 K/uL Eosinophils # (Auto) 0.09 K/uL Basophils # (Auto) 0.02 K/uL RDW Standard Deviation 42.8 fL RDW Coefficient of Variation 13.9 % Immature Granulocyte % (Auto) 0.3 % Immature Granulocyte # (Auto) 0.02 K/uL Sodium Level 144 mmol/L Potassium Level 4.0 mmol/L Chloride Level 114 mmol/L Carbon Dioxide Level 24 mmol/L Anion Gap 6.0 mmol/L Blood Urea Nitrogen 6 mg/dl Creatinine 0.73 mg/dl Est Creatinine Clear Calc Drug Dose 95.6 ml/min Estimated GFR () 136.5 Estimated GFR (Non- 117.7 BUN/Creatinine Ratio 8.9 Random Glucose 104 mg/dl Calcium Level 8.0 mg/dl Magnesium Level 2.3 mg/dl Total Creatine Kinase 50 U/L 54 U/L Creatine Kinase MB 0.6 ng/ml 0.6 ng/ml Creatine Kinase MB Ratio 1.2 1.1 Troponin I < 0.015 ng/ml < 0.015 ng/ml Imaging: A CT scan was negative for pulmonary embolism, chest x-ray was unremarkable EK electrocardiograms have been done since arrival, all of these show sinus rhythm with a sinus arrhythmia and some anterior T-wave inversion. This T-wave inversion appears in different leads on different electrocardiograms but seems confined to V1 through V3. There does not appear to be any progression over the electrocardiograms. Telemetry reviewed: Sinus rhythm and sinus tachycardia at low heart rates (110 bpm). No significant arrhythmia. Assessment & Plan #1. Abnormal electrocardiogram: I suspect her abnormal electrocardiogram is due to persistent juvenile pattern, the differences between them are probably due to differences in lead placement. I would like to make sure she does not have any abnormalities on echocardiography (such as wall motion abnormalities or pericardial effusion) but if not I would pursue no further evaluation of this. #2. History of heart murmur: I do not hear it on exam today, apparently it was when she was young but it could represent an intermittent abnormality such as mitral regurgitation or a functional outflow tract murmur. I think it is prudent to perform an echocardiogram to make sure that she does not have anything significant. #3. Rapid heart rate: It sounds as though her rapid heart rate is not some type of SVT, it appears to be sinus tachycardia at a fairly low heart rate and evidently was recorded in the emergency room where no significant arrhythmia was identified. If this becomes problematic we can consider outpatient event monitoring but at this point I don't think I would pursue further evaluation. #4. Chest pain: Her description of the pain is very atypical for cardiac etiology (including pericarditis) and as long as the echocardiogram is normal I would not pursue further evaluation. Thank you for allowing me to participate in her care.
--- NOTE | 2016-06-12 17:13 | Discharge Summary ---
Discharge Summary Date of Service Jun 12, 2016. Discharge Summary Admission Date: Jun 11, 2016 at 19:55 Discharge Disposition: Home Principal Diagnosis: hypokalemia Medication Reconciliation Continued Medications: Clarithromycin (Clarithromycin) 500 Mg Tab 1 TAB PO Q12 Omeprazole (Omeprazole) 20 Mg Tab 1 TAB PO DAILY, TAB Discontinued Medications: Amoxicillin (Amoxil) 500 Mg Cap 2 CAP PO Q12 for 10 Days, CAP Hospital Course The patient is a 20-year-old female who presents emergency department with complaint of a room spinning type of dizziness that began about 4 days prior to arrival. She reports that she's had abdominal pain for the past 3 years, and was recently diagnosed by her physicians in [place] where she lives, with Helicobacter pylori. She was started on Prilosec, amoxicillin, and Biaxin per protocol about one week ago, and developed a few days later the symptoms of dizziness along with heart palpitations, shortness of breath, diarrhea and vomiting. When she contacted her PCP in [place] 2 days ago, she was told to stop the amoxicillin. With persistent symptoms she was advised to come to emergency department for assessment. On admission, EKG was found to be abnormal with anterior leads with T wave inversions. Cardiology was consulted and an echo was performed. Preliminary reading did not show anything significant and no significant mitral valve abnormalities. We did replete her potassium of 2.9 up to 4.0. 1. Hypokalemia with EKG changes - from her diarrhea - chemistry as outpatient a few weeks ago with normal K and normal bicarb unlikely aldosterone-mediated phenomenon - resolved with potassium repletion - EKG with anterior ischemic changes - discussed with cardiology: likely juvenile changes 2. EKG changes, palpitations - does have murmur - negative cardiac enzymes - awaiting echo final read, but preliminary findings without any significant mitral abnormalities per cardio - discussed with cardio: likely no further work-up required - follow-up with primary care physician Total Time Spent: Less than 30 minutes This includes examination of the patient, discharge planning, medication reconciliation, and communication with other providers. Discharge Instructions Please refer to the electronic Patient Visit Report (Discharge Instructions) for additional information.
--- NOTE | 2016-06-12 17:14 | Discharge Instructions ---
Discharge Instructions Date of Service Jun 12, 2016. Admission Reason for Admission: Abnormal Ekg, Hypokalemia Discharge Discharge Diagnosis / Problem: hypokalemia, abnormal EKG Discharge Goals Goal(s): Decrease discomfort Activity Recommendations Activity Limitations: resume your previous activity . Current Hospital Diet Patient's current hospital diet: Regular Diet Discharge Diet Recommended Diet: Regular Diet Pending Studies Studies pending at discharge: yes List of pending studies: echo Medical Emergencies . Who to Call and When: Medical Emergencies: If at any time you feel your situation is an emergency, please call 911 immediately. . Non-Emergent Contact Non-Emergency issues call your: Primary Care Provider . . "Provider Documentation" section prepared by Nat Lopez. VTE Core Measure Inpt VTE Proph given/why not?: SCD's
--- NOTE | 2016-06-12 17:47 | ECHOCARDIOGRAM REPORT ---
*NOTICE TO RECEIVING CONSTITUTION PARTY AGENCY This information is strictly Confidential and protected under [place] law. [place] law prohibits you from making any further disclosure of this information unless further disclosure is expressly permitted by the written consent of the person to whom it pertains or is authorized by law. A general authorization for the release of medical or other information is not sufficient for this purpose. Hospital accepts no responsibility if the information is made available to any other person, INCLUDING THE PATIENT. Interpretation Summary * Name: CORAL LOWRY Study Date: 06/12/2016 03:19 PM BP: 129/78 mmHg * Patient Location: C.2T\S\S239\S\2 HR: 66 * : 1995 (M/d/yyyy) Gender: Female Height: 62 in * Age: 20 yrs Ethnicity: CA Weight: 112 lb * Ordering Physician: Daryn Aguilar * Referring Physician: Self, Referred * Performed By: Clara Moore RCS * * Reason For Study: Murmurs * BSA: 1.5 m2 * -- Conclusions -- * Left ventricular systolic function is normal. * Normal echo Procedure Details * A complete two-dimensional transthoracic echocardiogram was performed (2D, M-mode, Doppler and color flow Doppler). Left Ventricle * The left ventricle is normal in size. * There is normal left ventricular wall thickness. * Ejection Fraction = 65-70%. * Left ventricular systolic function is normal. Right Ventricle * The right ventricle is normal in size and function. Atria * The left atrial size is normal. * Right atrial size is normal. Mitral Valve * The mitral valve anatomy is normal. * There is no mitral regurgitation noted. Tricuspid Valve * The tricuspid valve anatomy is normal. * There is trace tricuspid regurgitation. Aortic Valve * The aortic valve is not well visualized. * Probably trileaflet * No hemodynamically significant valvular aortic stenosis. * There is no significant aortic regurgitation. Pulmonic Valve * The pulmonic valve is not well seen, but is grossly normal. Pericardium/Pleural * There is no pericardial effusion. Left Ventricular Diastolic Function * Normal diastolic function MMode 2D Measurements and Calculations IVSd 0.89 cm IVSs 1.2 cm LVIDd 3.9 cm LVIDs 2.3 cm LVPWd 0.80 cm LVPWs 1.1 cm IVS/LVPW 1.1 FS 41.9 % EDV(Teich) 67.3 ml ESV(Teich) 17.8 ml EF(Teich) 73.5 % EDV(cubed) 60.9 ml ESV(cubed) 11.9 ml EF(cubed) 80.4 % % IVS thick 40.7 % % LVPW thick 34.2 % LV mass(C)d 98.2 grams LV mass(C)dI 65.7 grams/m\S\2 LV mass(C)s 72.4 grams LV mass(C)sI 48.4 grams/m\S\2 CO(Teich) 4.0 l/min CI(Teich) 2.7 l/min/m\S\2 SV(Teich) 49.5 ml SI(Teich) 33.1 ml/m\S\2 CO(cubed) 4.0 l/min CI(cubed) 2.7 l/min/m\S\2 SV(cubed) 49.0 ml SI(cubed) 32.8 ml/m\S\2 Ao root diam 2.7 cm Ao root area 5.8 cm\S\2 ACS 1.6 cm LA dimension 2.7 cm LA/Ao 1.0 LVAd ap4 32.2 cm\S\2 LVLd ap4 9.1 cm EDV(MOD-sp4) 94.0 ml LVAs ap4 16.8 cm\S\2 LVLs ap4 7.2 cm ESV(MOD-sp4) 33.0 ml EF(MOD-sp4) 64.9 % LVAd ap2 29.6 cm\S\2 LVLd ap2 8.4 cm EDV(MOD-sp2) 87.0 ml LVAs ap2 13.9 cm\S\2 LVLs ap2 6.4 cm ESV(MOD-sp2) 26.0 ml EF(MOD-sp2) 70.1 % CO(MOD-sp4) 4.9 l/min CI(MOD-sp4) 3.3 l/min/m\S\2 SV(MOD-sp4) 61.0 ml SI(MOD-sp4) 40.8 ml/m\S\2 CO(MOD-sp2) 4.9 l/min CI(MOD-sp2) 3.3 l/min/m\S\2 SV(MOD-sp2) 61.0 ml SI(MOD-sp2) 40.8 ml/m\S\2 Doppler Measurements and Calculations MV E max sanya 109.7 cm/sec MV A max sanya 55.5 cm/sec MV E/A 2.0 MV P1/2t max sanya 112.2 cm/sec MV P1/2t 84.9 msec MVA(P1/2t) 2.6 cm\S\2 MV dec slope 387.1 cm/sec\S\2 MV dec time 0.21 sec Ao V2 max 167.7 cm/sec Ao max PG 11.3 mmHg Ao max PG (full) 2.2 mmHg LV V1 max PG 9.0 mmHg LV V1 max 150.1 cm/sec TR max sanya 176.8 cm/sec
[2016-06-12] MEDS ORDERED: FAMOTIDINE 20 MG TAB PO SCH (21:00)
== END 2016-06-12 18:21 | disposition home or self-care (01) | DRG 641 ==
LOC: ENRESERVTM → ENRESERVDT → C.EDB 15:48 → C.2T 19:55
PROVIDERS: ADMIT Hospitalist; ATTEND Internal Medicine
DX: E87.6 Hypokalemia (principal); R00.2 Palpitations; Z79.899 Other long term (current) drug therapy

== ENCOUNTER 2017-02-22 16:29 | Emergency (ER) | payer OTHER ==
[~2017-02-22] VITALS: Ht 156.2 cm; Wt 54.4 kg
[~2017-02-22 16:29] MED LIST: BXN500 PO; OMEP20TA PO
[2017-02-22 16:37] VITALS: TEMP 36.7
[2017-02-22] MEDS ORDERED: BCPILLS PO (16:51)
[2017-02-22] MEDS ORDERED: PROCHLORPERAZINE 5 MG/ML 2 ML VIAL IV STA (16:51)
[2017-02-22] MEDS ORDERED: DiphenhydrAMINE HCL 50 MG/ML VIAL IV STA (16:51)
[2017-02-22] MEDS ORDERED: KETOROLAC TROMETHAMINE 30 MG/ML VIAL IV STA (16:51)
--- NOTE | 2017-02-22 16:52 | EMERGENCY ROOM VISIT NOTE ---
History Report prepared by Constantinoibshawanda: Kathrine Petty Under the Supervision of: Dr. Marcelo Rivera M.D. First contact with patient: 16:40 Chief Complaint: DIZZY Stated Complaint: NUMBNESS/TINGLING IN HEAD, DIZZINESS History of Present Illness The patient is a 21 year old female who presents to the Emergency Room with complaints of persistent dizziness since 0130 this morning. She was watching TV when the dizziness started. She did have a headache earlier today, but it has resolved. She is still experiencing some "numbness and tingling" in her head. She denies any recent head trauma or history of migraine headaches. She states she feels like her brain is "moving against my skull". She also complains of intermittent nausea and diarrhea today. The patient reports she was seen here approximately 1 year ago for the same issue. She was found to have H-Pylori and also had low Potassium on blood work. She takes daily control but other medications. She denies any recent chest pain or shortness of breath. Source of History: patient Onset: 013 this morning Position: other (global) Timing: other (persistent) Associated Symptoms: + nausea, + diarrhea, + numbness (and tingling in the head), No headache, No chest pain, No SOB Review of Systems See HPI for pertinent positives & negatives. A total of 10 systems reviewed and were otherwise negative. Past Medical & Surgical Medical Problems: (1) Positive H. pylori test Surgical Problems: (1) History of wisdom tooth extraction Family History Hypertension Social History Smoking Status: Never Smoker Alcohol Use: occasionally Drug Use: none Marital Status: single Housing Status: lives with roommate Occupation Status: [employer] Current/Historical Medications Scheduled Control Pills ( Control Pills), 1 TAB PO DAILY Allergies Coded Allergies: No Known Allergies (Unverified , 02/22/17) Physical Exam Vital Signs Date Time Temp Pulse Resp B/P (MAP) Pulse Ox O2 Delivery O2 Flow Rate FiO2 02/22/17 18:32 76 20 119/77 99 02/22/17 17:28 105 16 148/87 99 Room Air 02/22/17 17:25 96 02/22/17 17:06 100 Room Air 02/22/17 17:06 100 Room Air 02/22/17 17:05 102 16 137/73 100 Room Air 105 161/91 88 134/90 02/22/17 16:37 36.7 107 18 165/97 100 Room Air Physical Exam GENERAL: Patient is a healthy-appearing well-nourished 21 year old female HEAD: Normocephalic atraumatic EYES: Ocular movements intact pupils equal and react to light OROPHARYNX mucous membranes are moist no exudates present no erythema or edema present NECK: Supple no nuchal rigidity CHEST: Good equal expansion LUNGS: Clear and equal to auscultation CARDIAC: Normal S1 and S2 ABDOMEN: Soft nontender no guarding BACK: No CVA tenderness EXTREMITIES: No pain upon palpation normal muscle strength in all groups no clubbing cyanosis or edema NEURO: Patient is following commands and answering questions appropriately. Alert and oriented x3 Cranial Nerves 2-12 grossly intact Medical Decision & Procedures ER Provider Diagnostic Interpretation: Radiology results as stated below per my review and radiologist interpretation: CHEST ONE VIEW PORTABLE HISTORY: Short of breath. COMPARISON: Chest 06/11/2016. FINDINGS: The lungs are clear. Cardiac silhouette is normal in size. No pleural effusions. No pneumothorax. IMPRESSION: No acute process. Electronically signed by: Amado Elizondo M.D. 02/22/2017 5:26 PM Laboratory Results 02/22/17 16:57 Red Blood Count 4.50, Mean Corpuscular Volume 84.9, Mean Corpuscular Hemoglobin 28.4, Mean Corpuscular Hemoglobin Concent 33.5, Mean Platelet Volume 9.9, Neutrophils (%) (Auto) 69.8, Lymphocytes (%) (Auto) 21.9, Monocytes (%) (Auto) 6.9, Eosinophils (%) (Auto) 0.9, Basophils (%) (Auto) 0.4, Neutrophils # (Auto) 6.55, Lymphocytes # (Auto) 2.05, Monocytes # (Auto) 0.65, Eosinophils # (Auto) 0.08, Basophils # (Auto) 0.04 02/22/17 16:57 Test 02/22/17 16:57 02/22/17 17:00 02/22/17 17:03 White Blood Count 9.38 K/uL (4.8-10.8) Red Blood Count 4.50 M/uL (4.2-5.4) Hemoglobin 12.8 g/dL (12.0-16.0) Hematocrit 38.2 % (37-47) Mean Corpuscular Volume 84.9 fL (80-100) Mean Corpuscular Hemoglobin 28.4 pg (25-34) Mean Corpuscular Hemoglobin Concent 33.5 g/dl (32-36) Platelet Count 314 K/uL (130-400) Mean Platelet Volume 9.9 fL (7.4-10.4) Neutrophils (%) (Auto) 69.8 % Lymphocytes (%) (Auto) 21.9 % Monocytes (%) (Auto) 6.9 % Eosinophils (%) (Auto) 0.9 % Basophils (%) (Auto) 0.4 % Neutrophils # (Auto) 6.55 K/uL (1.4-6.5) Lymphocytes # (Auto) 2.05 K/uL (1.2-3.4) Monocytes # (Auto) 0.65 K/uL (0.11-0.59) Eosinophils # (Auto) 0.08 K/uL (0-0.5) Basophils # (Auto) 0.04 K/uL (0-0.2) RDW Standard Deviation 44.2 fL (36.4-46.3) RDW Coefficient of Variation 14.2 % (11.5-14.5) Immature Granulocyte % (Auto) 0.1 % Immature Granulocyte # (Auto) 0.01 K/uL (0.00-0.02) Est Creatinine Clear Calc Drug Dose 70.3 ml/min Estimated GFR () 96.1 Estimated GFR (Non- 82.9 BUN/Creatinine Ratio 8.0 (10-20) Calcium Level 8.7 mg/dl (8.5-10.1) Total Bilirubin 0.3 mg/dl (0.2-1) Direct Bilirubin < 0.1 mg/dl (0-0.2) Aspartate Amino Transf (AST/SGOT) 15 U/L (15-37) Alanine Aminotransferase (ALT/SGPT) 15 U/L (12-78) Alkaline Phosphatase 65 U/L (45-117) Total Protein 7.9 gm/dl (6.4-8.2) Albumin 3.6 gm/dl (3.4-5.0) Thyroid Stimulating Hormone (TSH) 1.970 uIu/ml (0.300-4.500) Urine Color YELLOW Urine Appearance CLEAR (CLEAR) Urine pH 7.0 (4.5-7.5) Urine Specific Baker 1.009 (1.000-1.030) Urine Protein NEG (NEG) Urine Glucose (UA) NEG (NEG) Urine Ketones NEG (NEG) Urine Occult Blood TRACE (NEG) Urine Nitrite NEG (NEG) Urine Bilirubin NEG (NEG) Urine Urobilinogen NEG (NEG) Urine Leukocyte Esterase NEG (NEG) Urine WBC (Auto) 1-5 /hpf (0-5) Urine RBC (Auto) 0-4 /hpf (0-4) Urine Hyaline Casts (Auto) 1-5 /lpf (0-5) Urine Epithelial Cells (Auto) >30 /lpf (0-5) Urine Bacteria (Auto) NEG (NEG) Urine Test NEG (NEG) Bedside Hemoglobin 12.9 g/dl (12.0-16.0) Bedside Hematocrit 38 % (37-47) Bedside Sodium 142 mEq/L (135-144) Bedside Potassium 3.7 mEq/L (3.3-5.0) Bedside Chloride 106 mEq/L (101-112) Bedside Total CO2 23 mEq/l (24-31) Anion Gap 18.0 mmol/L (16-25) Bedside Blood Urea Nitrogen 7 mg/dl (7-18) Bedside Creatinine 0.9 mg/dl (0.6-1.3) Bedside Glucose (other) 103 mg/dl (70-99) Bedside Ionized Calcium (Antonette) 1.24 mmol/l (1.12-1.32) Labs reviewed by ED physician. Medications Administered Medications (Trade) Dose Ordered Sig/Keiko Route Start Time Stop Time Status Last Admin Dose Admin Ketorolac Tromethamine (Toradol Inj) 30 mg NOW STAT IV 02/22/17 16:51 02/22/17 16:53 DC 02/22/17 17:21 30 MG Prochlorperazine Edisylate (Compazine Inj) 5 mg NOW STAT IV 02/22/17 16:51 02/22/17 16:53 DC 02/22/17 17:21 5 MG Diphenhydramine HCl (Benadryl Inj) 25 mg NOW STAT IV 02/22/17 16:51 02/22/17 16:53 DC 02/22/17 17:21 25 MG Potassium Chloride (Josy Ciel Elix) 30 meq NOW STAT PO 02/22/17 17:19 02/22/17 17:21 DC 02/22/17 17:23 30 MEQ ECG Indication: weakness Rate (beats per minute): 86 Rhythm: normal sinus Findings: T-wave inversion (Anterior), no acute ischemic change, no ectopy Comparison ECG Date: Compred to previous EKG's, T-wave inversions are old ED Course 164: Past medical records reviewed. The patient was evaluated in room A10. A complete history and physical examination was performed. 164: The patient declined my offer of calling her Mother and Father to let them know she is here in the ED, but would like me to call her older sister. 165: Benadryl 25 mg IV, Compazine 5 mg IV, Toradol 30 mg IV. 171: Potassium Chloride 30 meq PO. 180: I reevaluated the patient. She is feeling well and resting comfortably. I discussed her results and discharge instructions and she verbalized complete understanding and agreement. Medical Decision Prior records/ancillary studies reviewed. Triage Nursing notes reviewed. The patient's history was concerning for dizziness and vertigo. Differential diagnosis: Etiologies such as benign positional vertigo, dehydration, hypovolemia, anemia, tumor, infection, hypoglycemia, electrolyte abnormalities, cardiac sources, intracerebral event, toxicologic, neurologic, as well as others were entertained. This is a 21-year-old female who presents emergency department complaining of dizziness. I will note that the patient is not having a headache and denies any headache symptoms. I suspicion for meningitis or encephalitis is exceedingly low. I asked the patient if she wished to discuss her case with her mother however the patient does not want her mother contacted. An IV was established, patient given Toradol Compazine and Benadryl. Repeat examination revealed improvement patient's symptoms. Due to the fluid shortage the patient was rehydrated by mouth. Repeat examination revealed improvement patient's symptoms. The patient patient's potassium was slightly off and she is slightly dehydrated and believe this is most likely contributing to her symptoms. I recommended she follow up with her primary care physician. Patient was in agreement with the treatment plan. Medication Reconcilliation Current Medication List: was personally reviewed by me Blood Pressure Screening Patient's blood pressure: Elevated blood pressure Blood pressure disposition: Referred to PCP Impression Primary Impression: Dizziness Additional Impressions: Dehydration Hypokalemia Scribe Attestation The scribe's documentation has been prepared under my direction and personally reviewed by me in its entirety. I confirm that the note above accurately reflects all work, treatment, procedures, and medical decision making performed by me. Departure Information Dispostion Home / Self-Care Referrals [facility] (PCP) Patient Instructions ED Dehydration, ED Dizziness [facility], Hypokalemia Dc, My [facility] Additional Instructions Increase fluids next 48 hours You have been examined and treated today on an emergency basis only. This is not a substitute for, or an effort to provide, complete comprehensive medical care. It is impossible to recognize and treat all injuries or illnesses in a single emergency department visit. It is therefore important that you follow up closely with [facility]. Call as soon as possible for an appointment. Thank you for your time and consideration. I look forward to speaking with you again soon. Please don't hesitate to call us if you have any questions. Problem Qualifiers
[2017-02-22 17:04] VITALS: Ht 156.2 cm; Wt 54.4 kg
[2017-02-22 17:06] VITALS: O2SAT 100
[2017-02-22 17:12] LABS: BASO % 0.4 %; BASO ABS # 0.04 K/uL (0-0.2); COMPLETE YES; EOS % 0.9 %; HEMATOCRIT 38.2 % (37-47); IG% 0.1 %; LYMPH % 21.9 %; LYMPH ABS # 2.05 K/uL (1.2-3.4); MEAN CELL VOLUME 84.9 fL (80-100); MEAN CORPUSCULAR HEMOGLOBIN 28.4 pg (25-34); MEAN CORPUSCULAR HGB CONC 33.5 g/dl (32-36); MEAN PLATELET VOLUME 9.9 fL (7.4-10.4); MONO % 6.9 %; NEUT % 69.8 %; PLATELET COUNT 314 K/uL (130-400); WHITE BLOOD COUNT 9.38 K/uL (4.8-10.8)
[2017-02-22 17:16] LABS: ISTAT CREATININE 0.9 mg/dl (0.6-1.3); ISTAT HEMOGLOBIN 12.9 g/dl (12.0-16.0); ISTAT IONIZED CALCIUM 1.24 mmol/l (1.12-1.32)
[2017-02-22] MEDS ORDERED: POTASSIUM CHLORIDE 20 MEQ/15 ML UDC PO STA (17:19)
--- NOTE | 2017-02-22 17:27 | DIAGNOSTIC IMAGING REPORT ---
CHEST ONE VIEW PORTABLE HISTORY: Short of breath. COMPARISON: Chest 06/11/2016. FINDINGS: The lungs are clear. Cardiac silhouette is normal in size. No pleural effusions. No pneumothorax. IMPRESSION: No acute process. Electronically signed by: Amado Elizondo M.D. 02/22/2017 5:26 PM Dictated Date/Time: 02/22/2017 5:24 PM
[2017-02-22 17:31] LABS: ALT/SGPT 15 U/L (12-78); AST/SGOT 15 U/L (15-37); BLOOD UREA NITROGEN 8 mg/dl (7-18); CALCIUM 8.7 mg/dl (8.5-10.1); CARBON DIOXIDE 23 mmol/L (21-32); CHLORIDE 106 mmol/L (98-107); CREATININE 0.97 mg/dl (0.60-1.20); GLUCOSE 106 mg/dl (70-99); POTASSIUM 3.6 mmol/L (3.5-5.1); SODIUM 138 mmol/L (136-145)
[2017-02-22 17:33] LABS: URINE APPEARANCE CLEAR (CLEAR); URINE BILIRUBIN NEG (NEG); URINE COLOR YELLOW; URINE EPITHELIAL CELL AUTO >30 /lpf (0-5); URINE NITRITE NEG (NEG); URINE SPECIFIC GRAVITY 1.009 (1.000-1.030); UROBILINOGEN NEG (NEG)
[2017-02-22 17:39] LABS: MANUAL MICROSCOPIC REQUIRED? NO; REVIEW REQ? NO
[2017-02-22 17:42] LABS: ALKALINE PHOSPHATASE 65 U/L (45-117)
[2017-02-22 18:32] VITALS: BP 119/77; PULSE 76; O2SAT 99
== END 2017-02-22 18:34 | disposition home or self-care (01) ==
LOC: C.EDB 16:31 → C.EDA 18:34
DX: R42 Dizziness and giddiness (principal); E86.0 Dehydration; E87.6 Hypokalemia; Z86.19 Personal history of other infectious and parasitic diseases; Z82.49 Family history of ischemic heart disease and other diseases of the circulatory system